=== PATIENT | male | born 1990 | race Asian ===

== ENCOUNTER 2022-09-01 19:05 | Emergency (ER) | payer OTHER ==
[~2022-09-01] VITALS: Ht 172.7 cm; Wt 74.5 kg
[2022-09-01 19:58] VITALS: BP 133/86
== END 2022-09-01 19:58 | disposition home or self-care (01) ==
LOC: ED 19:05
DX: S29.012A Strain of muscle and tendon of back wall of thorax, initial encounter (principal); W22.01XA Walked into wall, initial encounter
CPT/HCPCS: 99283